=== PATIENT | female | born 1980 | race Caucasian/White ===

== ENCOUNTER → 2019-12-26 08:15 | Outpatient (CLI) | payer OTHER, SELFPAY ==
[2019-12-02 09:10] VITALS: BMI 29.7
[2019-12-26 10:28] LABS: Basophil# 0.04 X10^3/uL; Basophil% 0.7 % (0-1); Color, Urine Yellow (Yellow); Eosinophil# 0.25 X10^3/uL; Eosinophils% 4.1 % (0-5); Glucose, Dipstick Normal (Normal); Hematocrit 40.3 % (37-47); Hemoglobin 13.1 g/dL (12.0-15.0); Ketone-Dipstick Negative (Negative); Leukocyte Esterase-Dipstick 100 /ul (Negative); Lymphocyte % 36.4 % (19-41); Mean Corp Hgb Conc 32.5 g/dL (32-36); Mean Corpuscular Hgb 29.5 pg (27.0-32.0); Mean Corpuscular Volume 90.8 fL (81-99); Mean Platelet Vol. 10.2 fl (6.2-12.0); Monocyte# 0.54 X10^3/uL; Monocyte% 8.9 % (0-10); NRBC Flagged by Analyzer 0 % (0-5); Neutrophil # 2.99 X10^3/uL (2.7-7.7); Neutrophil % 49.6 % (47-70); Nitrite-Dipstick Negative (Negative); Occult Blood-Urine 25 /ul (Negative); Platelet Count 304 K/mm3 (150-450); Protein-Dipstick Negative (Negative); RBC Distribution Width CV 13.1 % (11.6-14.6); RBC Distribution Width SD 42.5 fl (35.1-43.9); Red Blood Count 4.44 M/mm3 (4.2-5.4); Specific Gravity, Urine 1.015 (1.002-1.030); Urine Bilirubin Dipstick Negative (Negative); Urine Clarity Clear (Clear); Urine Urobilinogen Normal (Normal)
[2019-12-26 10:52] LABS: ALB/GLOB Ratio 1.6 RATIO (0.9-2.4); AST(SGOT) 12 U/L (15-37); Alanine Aminotransfer ALT/SGPT 22 U/L (13-56); Albumin, Serum 4.4 g/dL (3.2-5.0); Alkaline Phosphatase 49 U/L (45-117); Anion Gap 5 (5-15); BUN 20 mg/dL (7-18); BUN/Creat Ratio 30.3 RATIO (10-20); Calcium,Total 8.6 mg/dL (8.5-10.1); Chloride 110 mmol/L (98-107); Cholesterol 175 mg/dL (200); Creatinine, Serum 0.66 mg/dL (0.55-1.02); EST Glomerular Filtration Rate 106 mL/min (>60); Est Glom Filt Rate - Afr Amer 128 mL/min (>60); Globulin 2.7 g/dL (2.2-4.2); Glucose 94 mg/dL (74-106); High Density Lipoprotein 45 mg/dL; Potassium 4.1 mmol/L (3.5-5.1); Protein, Total 7.1 g/dL (6.4-8.2); Sodium Level 141 mmol/L (136-145); Thyroid Stim Hormone (TSH) 3.03 uIU/mL (0.358-3.74); Triglycerides 87 mg/dL; Very Low Density Lipoprotein 17 mg/dL (5-40)
== END ==
PROVIDERS: PCP Family Medicine; Referring Provider Family Medicine; Visit Provider Family Medicine
DX: I10 Essential (primary) hypertension (principal)
CPT/HCPCS: 36415; 80053; 80061; 81002; 84443; 85025

== ENCOUNTER → 2020-01-27 13:39 | Outpatient (CLI) | payer OTHER, SELFPAY ==
[2019-12-02 09:10] VITALS: BMI 29.7
[2020-01-27 11:15] VITALS: BMI 29.7
[2020-01-27 13:42] LABS: Bacteria 0 SEEN /hpf (None Seen); Mucous, Urine 0 SEEN /hpf (<or=2+)
[2020-01-27 15:14] LABS: Color, Urine Yellow (Yellow); Glucose, Dipstick Normal (Normal); Ketone-Dipstick Negative (Negative); Leukocyte Esterase-Dipstick 25 /ul (Negative); Nitrite-Dipstick Negative (Negative); Occult Blood-Urine 150 /ul (Negative); Protein-Dipstick Negative (Negative); Urine Bilirubin Dipstick Negative (Negative); Urine Clarity Sl. Cloudy (Clear); Urine Urobilinogen Normal (Normal)
[2020-01-27 15:39] LABS: Red Blood Cells-Urine 10-25 SEEN /hpf (0-5); Squamous Epithelial Cells - UA 0-5 SEEN /hpf (5-10); White Blood Cells 0-5 SEEN /hpf (0-5)
[2020-01-27 16:08] LABS: Free T3 3.1 pg/mL (2.18-3.98); T4 Free Direct 1.01 ng/dL (0.76-1.46); Thyroid Stim Hormone (TSH) 2.12 uIU/mL (0.358-3.74)
[2020-01-30 16:08] LABS: Thyroid Peroxidase AB < 9 IU/mL (0-34)
[2020-01-30 21:30] LABS: Thyroglobulin Antibody < 1.0 IU/mL (0.0-0.9)
[2020-02-01 16:57] LABS: HPV APTIMA, High Risk Negative (Negative)
== END ==
PROVIDERS: PCP Family Medicine; Visit Provider Family Medicine
DX: Z12.4 Encounter for screening for malignant neoplasm of cervix (principal); E03.9 Hypothyroidism, unspecified; R31.9 Hematuria, unspecified
CPT/HCPCS: 36415; 81001; 84439; 84443; 84481; 86376; 86800; 87086; 87088; 87624; 88175; G0145

== ENCOUNTER → 2020-03-30 09:10 | Outpatient (CLI) | payer OTHER, SELFPAY ==
[2020-01-27 11:15] VITALS: BMI 29.7
[2020-03-30 10:07] LABS: Absolute Lymphocyte Count 1.83 X10^3/uL (0.83-4.51); Absolute Neutrophil Count 2.5 X10^3/uL (2.0-7.7); Basophil# 0.03 X10^3/uL; Basophil% 0.6 % (0-1); Eosinophil# 0.18 X10^3/uL; Eosinophils% 3.6 % (0-5); Hematocrit 40.8 % (37-47); Hemoglobin 13.1 g/dL (12.0-15.0); Lymphocyte # 1.83 X10^3/ul (4.0); Lymphocyte % 36.7 % (19-41); Mean Corp Hgb Conc 32.1 g/dL (32-36); Mean Corpuscular Hgb 28.5 pg (27.0-32.0); Mean Corpuscular Volume 88.9 fL (81-99); Mean Platelet Vol. 10.3 fl (6.2-12.0); Monocyte# 0.43 X10^3/uL; Monocyte% 8.6 % (0-10); NRBC Flagged by Analyzer 0 % (0-5); Neutrophil % 50.3 % (47-70); Platelet Count 321 K/mm3 (150-450); RBC Distribution Width SD 42.5 fl (35.1-43.9); Red Blood Count 4.59 M/mm3 (4.2-5.4)
[2020-03-30 10:25] LABS: Hemoglobin A1c 5.7 % (3.8-5.6)
[2020-03-30 10:41] LABS: ALB/GLOB Ratio 1.3 RATIO (0.9-2.4); AST(SGOT) 13 U/L (15-37); Alanine Aminotransfer ALT/SGPT 23 U/L (13-56); Alkaline Phosphatase 47 U/L (45-117); Anion Gap 4 (5-15); BUN 20 mg/dL (7-18); BUN/Creat Ratio 26.1 RATIO (10-20); CRP, High Sensitivity Cardiac 2.03 mg/L; Calcium,Total 8.7 mg/dL (8.5-10.1); Chloride 106 mmol/L (98-107); Cholesterol 182 mg/dL (200); Creatinine, Serum 0.77 mg/dL (0.55-1.02); EST Glomerular Filtration Rate 88 mL/min (>60); Est Glom Filt Rate - Afr Amer 107 mL/min (>60); Globulin 3.1 g/dL (2.2-4.2); Glucose 82 mg/dL (74-106); High Density Lipoprotein 48 mg/dL; Potassium 3.9 mmol/L (3.5-5.1); Protein, Total 7.1 g/dL (6.4-8.2); Sodium Level 139 mmol/L (136-145); Triglycerides 91 mg/dL; Very Low Density Lipoprotein 18 mg/dL (5-40)
== END ==
PROVIDERS: PCP Family Medicine; Referring Provider Nurse Practitioner Family; Visit Provider Nurse Practitioner Family
DX: R53.82 Chronic fatigue, unspecified (principal); M62.81 Muscle weakness (generalized)
CPT/HCPCS: 36415; 80053; 80061; 83036; 84443; 85025; 86141

== ENCOUNTER → 2020-05-10 18:30 | Outpatient (CLI) | payer OTHER, SELFPAY ==
[2020-01-27 11:15] VITALS: BMI 29.7
== END ==
PROVIDERS: PCP Family Medicine; Referring Provider Family Medicine; Visit Provider Family Medicine
DX: U07.1 COVID-19 (principal)
CPT/HCPCS: 87635; C9803; U0003

== ENCOUNTER → 2020-05-31 12:22 | Outpatient (CLI) | payer OTHER, SELFPAY ==
[2020-01-27 11:15] VITALS: BMI 29.7
--- NOTE | 2020-05-31 12:24 | BI_ITS ---
MAMMOGRAPHY - BILATERAL SCREENING REASON FOR EXAM: Female, 39 years old. Routine annual screening examination. PERTINENT HISTORY: Non-contributory. TECHNIQUE: Digital bilateral breast violette (3D mammographic acquisition) in the CC and MLO projections. 2-D mediolateral oblique (MLO) and craniocaudad (CC) views of both breasts were obtained. CAD: Full Field Digital Mammography with Computer Added Detection was performed. COMPARISON: None. Baseline examination. FINDINGS: Breast Composition: The breasts are heterogeneously dense, which may obscure small masses. There are no dominant masses or suspicious calcifications. There is a 1.1 cm well-defined nodule in the central deep portion of the right breast. Correlation with ultrasound is recommended. No other significant abnormalities are identified. BI/SCREEN MAMM (CAD) W/VIOLETTE BILAT IMPRESSION: 1.1 cm well-defined nodule in the central deep portion of the right breast. Correlation with ultrasound is recommended. ASSESSMENT CATEGORY: BIRADS Category 0: Incomplete. Need additional imaging evaluation. A letter regarding these results will be sent to the patient by the facility within 30 days. Approximately 10% of breast cancers are not detected by mammography. A normal mammogram should not delay biopsy of a clinically suspicious abnormality. [id number] Electronically Signed: Don Thornton, at 13:28 EST , Service support ,
== END ==
PROVIDERS: PCP Family Medicine; Referring Provider Obstetrics & Gynecology; Visit Provider Obstetrics & Gynecology
DX: Z12.31 Encounter for screening mammogram for malignant neoplasm of breast (principal)
CPT/HCPCS: 77063; 77067

== ENCOUNTER → 2020-06-05 08:31 | Outpatient (CLI) | payer OTHER, SELFPAY ==
[2020-01-27 11:15] VITALS: BMI 29.7
--- NOTE | 2020-06-05 08:34 | US_ITS ---
STUDY: ULTRASOUND BREAST - RIGHT REASON FOR EXAM: Female, 39 years old. ABN RT MAMM TECHNIQUE: Axial and longitudinal images of the RIGHT breast were performed with a high resolution ultrasound transducer. # OF IMAGES: 52 COMPARISON: None. FINDINGS: RIGHT Breast: There is a lesion #1 in the lower outer quadrant. The lesion measures 7 x 9 x 5 mm in size. Clock notation: 8 o''clock position. Distance from nipple: 8 cm. Posterior Enhancement: Yes. Posterior Shadowing: None. Margins: Sharp and jagged. Echogenicity: Anechoic. Compression effect on Shape: No change. US/Breast Limited Unilateral IMPRESSION: Probably benign cystic lesion in the right breast. ASSESSMENT CATEGORY: BIRADS Category 3: Probably Benign - Short-Interval Follow-up Suggested. A letter regarding these results will be sent to the patient by the facility within 30 days. Electronically Signed: Shaheen Mcdowell, at 14:56 EST Tel , Service support ,
== END ==
PROVIDERS: PCP Family Medicine; Referring Provider Obstetrics & Gynecology; Visit Provider Nurse Practitioner Women's Health
DX: N63.10 Unspecified lump in the right breast, unspecified quadrant (principal)
CPT/HCPCS: 76642

== ENCOUNTER → 2020-07-04 12:54 | Outpatient (CLI) | payer OTHER, SELFPAY ==
[2020-06-20 10:15] VITALS: BMI 29.8
--- NOTE | 2020-07-04 13:03 | ECHOCS_ITS ---
Reason For Study: Arrhythmia Procedure This was a 2D Doppler, Color Flow transthoracic echocardiogram. Contrast injection was performed. Exam performed in department. Left Ventricle Normal LV size. Left ventricular systolic function is normal. The estimated ejection fraction is 55 %. Normal diastology for age. Right Ventricle Normal RV size. Normal systolic function. Atria Normal left atrium. Normal right atrium. Mitral Valve Normal mitral valve. Tricuspid Valve Normal tricuspid valve. Mild (1+) tricuspid valve insufficiency. Pulmonary artery systolic pressure is 25 mmHg. Aortic Valve Normal aortic valve. Trisinus/trileaflet aortic valve. Pulmonic Valve Normal pulmonic valve. Mild (1+) pulmonic valve insufficiency. Great Vessels Normal aortic root. The pulmonary artery is normal size. Normal inferior vena cava. Pericardium/Pleural No pericardial effusion. Medication Diluted definity 3ml given slow IV push to enhance endocardial definition. MMode/2D Measurements & Calculations LVIDd: 4.6 cm IVSd: 0.82 cm Ao root diam: 2.8 cm LVIDs: 3.0 cm LVPWd: 0.86 cm RVDd: 3.8 cm FS: 34.9 % LAV(MOD-bp): 42.2 ml LVAd ap4: 28.3 cm2 SV(MOD-sp4): 42.6 ml LAV(MOD-bp) Indexed: 21.8 ml/m2 EDV(MOD-sp4): 79.6 ml LAV(MOD-sp2): 48.3 ml EDV(sp4-el): 82.4 ml LAV(MOD-sp4): 34.4 ml LVAs ap4: 17.4 cm2 ESV(MOD-sp4): 37.0 ml ESV(sp4-el): 37.5 ml EF(MOD-sp4): 53.5 % EF(sp4-el): 54.4 % SV(sp4-el): 44.8 ml LA A4 area: 14.5 cm2 LA dimension(2D): 3.5 cm RA A4 area: 14.5 cm2 Doppler Measurements & Calculations MV E max chase: 67.8 cm/sec Lat Peak E' Chase: 13.2 cm/sec Med Peak E' Chase: 10.5 cm/sec MV A max chase: 39.6 cm/sec E/E' lat: 5.1 E/E' med: 6.4 MV E/A: 1.7 Ao V2 max: 126.2 cm/sec LV V1 max: 123.3 cm/sec PA V2 max: 91.5 cm/sec Ao max P.4 mmHg LV V1 max P.1 mmHg Ao V2 mean: 89.7 cm/sec Ao mean P.5 mmHg Ao V2 VTI: 27.4 cm PI end-d chase: 76.1 cm/sec TR max chase: 230.6 cm/sec TR max P.3 mmHg Interpretation Summary Normal LV size. Left ventricular systolic function is normal. The estimated ejection fraction is 55 %. Mild (1+) tricuspid valve insufficiency. Ordering Physician: Abdiel Lofton Referring Physician: Magy Gerardo Performed By: Grazyna Nolan, RDCS, RVT
--- NOTE | 2020-07-04 13:49 | CT_ITS ---
STUDY: CARDIAC CALCIUM SCORING - CT CHEST REASON FOR EXAM: Female, 39 years old. FAMILY HISTORY CAD. OVER READ CALCIUM SCORING. RADIATION DOSAGE (If Supplied By Facility): CTDIvol = ( 12.19 ) mGy, DLP = ( 243.79 ) mGycm TECHNIQUE: Axial non-enhanced images were acquired through the heart for the sole purpose of measuring coronary artery calcium. Individualized dose optimization techniques were used for this CT. COMPARISON: None. FINDINGS: Please see the patient''s medical record for a personalized calcium score. The visualized lungs are clear. The heart and pericardium are within normal limits. Images through the upper abdomen demonstrate no significant abnormality. CT/Limited Chest CT w/CCTA IMPRESSION: Please see the patient''s medical record for a personalized calcium score. Please go to: [email or web address] , for a description of the calculator. Electronically Signed: Scooter Mena MD at 15:02 EST Tel , Service support ,
[2020-07-04 13:52] VITALS: BP 118/87; PULSE 62; RESP 16; O2SAT 100; BMI 29.8
--- NOTE | 2020-07-04 17:13 | CA.SCORE ---
Calcium Scoring Date of Study:: 07/04/20 Coronary Calcium Scoring: High-resolution Computed Tomographic imaging of the chest was performed on [07/04/2020], with particular attention paid to the coronary arteries. Images from the examination were analyzed for the presence and extent of coronary artery calcification , using coronary calcium quantification software. The patient tolerated the procedure well and there were no complications. The results of the coronary calcification analysis are provided below. - Findings Left Main (LM): 0 Left Anterior Descending (LAD): 0 Left Circumflex (LCX): 0 Right Coronary Artery (RCA): 0 Total Agatston Score: 0 Calcium Scoring Interpretation: 0 No identifiable atherosclerotic plaque. Very low cardiovascular disease risk. <5% chance of presence coronary artery disease A Negative Examination 1-10 Minimal Plaque burden. Significant coronary artery disease very unlikely. 11-100 Mild plaque burden. Likely mild or minimal coronary atherosclerosis. 101-400 Moderate plaque burden Moderate non-obstructive coronary artery disease highly likely. Over 400 Extensive plaque burden. High likelihood of at least one significant coronary stenosis (>50% diameter) Calcium Score: 0 Negative Examination - The above is suggestive of a negative examination with no evidence of coronary atherosclerotic plaquing. A full assessment of cardiac risk would include an assessment of all conventional risk factors and the scores and percentile rankings noted herein should be taken into consideration.
== END ==
PROVIDERS: PCP Family Medicine; Referring Provider Internal Medicine Cardiovascular Disease; Visit Provider Internal Medicine Cardiovascular Disease
DX: I49.8 Other specified cardiac arrhythmias (principal); Z82.49 Family history of ischemic heart disease and other diseases of the circulatory system
CPT/HCPCS: 75571; 76380; 93306; Q9957; A4216; C8929

== ENCOUNTER → 2020-11-16 09:27 | Outpatient (CLI) | payer OTHER, SELFPAY ==
[2020-01-27 11:15] VITALS: BMI 29.7
[2020-07-04 13:52] VITALS: BMI 29.8
--- NOTE | 2020-11-16 09:41 | BI_ITS ---
MAMMOGRAPHY - UNILATERAL DIAGNOSTIC: RIGHT BREAST REASON FOR EXAM: Female, 40 years old. Nodular density in the right breast. Six-month follow-up. PERTINENT HISTORY: Non-contributory. TECHNIQUE: Digital unilateral breast rebecca (3D mammographic acquisition) in the CC and MLO projections. 2-D mediolateral oblique (MLO) and craniocaudad (CC) views of both breasts were obtained. CAD: Full Field Digital Mammography with Computer Added Detection was performed. COMPARISON: Comparison is made with prior mammogram dated 05/31/2020. FINDINGS: Breast Composition: The breasts are heterogeneously dense, which may obscure small masses. Stable 1.2 cm x 0.9 cm well-defined nodule in the central deep slight lateral portion of the right breast. Correlation with ultrasound is recommended. No other significant abnormalities are identified. BI/DIAG MAMM W/CAD, UNILAT IMPRESSION: Stable unilateral diagnostic mammogram. Correlation with repeat sonogram of the right breast is recommended. ASSESSMENT CATEGORY: BIRADS Category 0: Incomplete. Need additional imaging evaluation. A letter regarding these results will be sent to the patient by the facility within 30 days. Approximately 10% of breast cancers are not detected by mammography. A normal mammogram should not delay biopsy of a clinically suspicious abnormality. Electronically Signed: Don Thornton MD at 12:36 EDT , Service support ,
--- NOTE | 2020-11-16 09:41 | US_ITS ---
STUDY: ULTRASOUND BREAST - RIGHT REASON FOR EXAM: Female, 40 years old. 6 month follow-up for right breast cyst. TECHNIQUE: Axial and longitudinal images of the RIGHT breast were performed with a high resolution ultrasound transducer. # OF IMAGES: 56 COMPARISON: Comparison is made with prior sonogram of the right breast dated 06/05/2020. FINDINGS: RIGHT Breast: There is a 6 mm x 7 mm x 5 mm hypoechoic/cystic nodule at the 10 o''clock position of the breast at 9 cm from nipple. The wall of the nodule is slightly lobulated. A biopsy is recommended. US/Breast Limited Unilateral IMPRESSION: 6 mm x 7 mm x 5 mm hypoechoic nodule with lobulated border as described. A biopsy is recommended. This is located at the 10 o''clock position of the breast at 9 cm from nipple. ASSESSMENT CATEGORY: BIRADS Category 4: Suspicious - Biopsy Should Be Considered. A letter regarding these results will be sent to the patient by the facility within 30 days. Electronically Signed: Don Thornton MD at 11:13 EDT , Service support ,
== END ==
PROVIDERS: PCP Family Medicine; Referring Provider Nurse Practitioner Women's Health; Visit Provider Nurse Practitioner Women's Health
DX: N60.01 Solitary cyst of right breast (principal)
CPT/HCPCS: 76642; 77061; 77065; G0279

== ENCOUNTER → 2020-11-28 12:33 | Outpatient (CLI) | payer OTHER, SELFPAY ==
[2020-11-22 11:56] VITALS: BMI 29.8
--- NOTE | 2020-11-28 | BRBX_PTH ---
PATIENT: VINH MIN LOC: [facility] U#:[id number] AGE/SX: 44/F ROOM: RE11/28/[address]: Dr. Maurisio Chappell MD : 1980 BED: DIS: SPEC #: [id number] RECD: 11/28/20 13:51 STATUS: OBDULIO ZE #: [id number] TAYLOR: 11/28/20 00:[address]: Maurisio Chappell DEPT: SURGICAL PATHOLOGY RECD BY: Umer Oconnor ENTERED: 11/28/20 13:51 SP TYPE: BREAST BX OTHR DR: Dr. Magy Gerardo MD Tissues: Right breast, NOS Procedures: Surgery Specimen Level IV HEADER OPERATION: Ultrasound-guided right breast biopsy PRE-OP DIAGNOSIS: Right breast mass TISSUE SUBMITTED: Right breast 10 o?clock positon, primarily cystic ISCHEMIC TIME: 1 minute FIXATION TIME: 6.5 hours MICROSCOPIC DIAGNOSIS Right breast at 10 o?clock, ultrasound-guided core biopsy: Fibrocystic change. Focal intraductal hyperplasia without atypia. No evidence of malignancy. AM:joel 11/29/2020 MICROSCOPIC DESCRIPTION Slides are reviewed. GROSS DESCRIPTION Received in fixative is one container labeled with the patient name and designated right breast. The specimen consists of multiple elongated fragments of song-yellow fibroadipose tissue that in aggregate measure 2.5 x 0.5 x 0.1 cm. The entire specimen is submitted in one cassette. / SJ:joel 11/28/20 TC:5 CPT: 16992
--- NOTE | 2020-11-28 12:36 | US_ITS ---
STUDY: ULTRASOUND BREAST - RIGHT REASON FOR EXAM: Female, 40 years old. TECHNIQUE: Axial and longitudinal images of the RIGHT breast were performed with a high resolution ultrasound transducer. # OF IMAGES: 21 COMPARISON: None. FINDINGS: RIGHT Breast: There is biopsy needle directed to the upper outer quadrant of the right breast towards the cystic area. This procedure was done by the surgeon. Electronically Signed: Leo Thomas, at 8:22 EDT Tel , Service support , US/US Breast Biopsy 1st Lesion
--- NOTE | 2020-11-28 12:58 | OP.PCM_ITS ---
Problems Associated Problem List Diagnoses (1) Abnormal ultrasound of breast: Report of Operation Date of Procedure: 11/28/20 Pre-Operative Diagnosis: Abnormal ultrasound of right breast Post-Operative Diagnosis: Same Surgery/Procedure Performed:: Ultrasound-guided right breast biopsy Specimen's removed: Right breast biopsy Description of Procedure: The patient's right breast was prepped and draped in usual sterile fashion. The lesion noted on ultrasound was localized in the 10:00 region of the right breast. After obtaining signed consent an area of sk in was injected with local anesthetic and cooper with a scalpel. A 13-gauge core mammotome needle was placed into the lesion under ultrasound guidance and several biopsies were obtained. The cyst was completely aspirated and the surrounding area was biopsied adequately. A clip was then placed into this area and the needle was removed. Steri-Strip and bandage were placed over the incision and ice pack was applied. Patient tolerated the procedure well.
== END ==
PROVIDERS: PCP Family Medicine; Referring Provider Surgery; Visit Provider Surgery
DX: R92.8 Other abnormal and inconclusive findings on diagnostic imaging of breast (principal); N62 Hypertrophy of breast
CPT/HCPCS: 19083; 88305

== ENCOUNTER → 2021-04-19 13:17 | Outpatient (CLI) | payer OTHER, SELFPAY ==
[2021-04-19 15:03] LABS: Erythrocyte Sedimentation Rate 3 mm/hr (0-30)
[2021-04-19 15:14] LABS: Rheumatoid Factor < 10.0 IU/mL (<15)
[2021-04-19 15:20] LABS: Vitamin D,25 Hydroxy 27.8 ng/mL
[2021-04-23 11:22] LABS: CCP IgG Antibodies 2 units (0-19)
[2021-04-23 12:26] LABS: ANTINUCLEAR ANTIBODIES DIRECT Negative (Negative)
== END ==
PROVIDERS: PCP Internal Medicine; Referring Provider Internal Medicine; Visit Provider Internal Medicine
DX: M25.50 Pain in unspecified joint (principal); R53.83 Other fatigue
CPT/HCPCS: 36415; 82306; 82533; 85652; 86038; 86140; 86200; 86225; 86235; 86431

== ENCOUNTER → 2021-05-13 10:50 | Outpatient (CLI) | payer OTHER, SELFPAY ==
--- NOTE | 2021-05-13 10:53 | US_ITS ---
STUDY: ULTRASOUND BREAST - RIGHT REASON FOR EXAM: Female, 40 years old. Six-month follow-up of right ultrasound-guided breast biopsy. TECHNIQUE: Axial and longitudinal images of the RIGHT breast were performed with a high resolution ultrasound transducer. # OF IMAGES: 27 COMPARISON: Comparison is made with prior examination dated 11/16/2020. FINDINGS: RIGHT Breast: The upper outer aspect of the right breast was examined by ultrasound. There is evidence of fibroglandular tissue. No solid or cystic masses seen at this time. US/Breast Limited Unilateral IMPRESSION: No sonographic abnormality is seen at this time ASSESSMENT CATEGORY: BIRADS Category 2: Benign. A letter regarding these results will be sent to the patient by the facility within 30 days. Electronically Signed: Don Thornton MD at 11:18 EST , Service support ,
== END ==
PROVIDERS: PCP Internal Medicine; Referring Provider Surgery; Visit Provider Surgery
DX: R92.8 Other abnormal and inconclusive findings on diagnostic imaging of breast (principal)
CPT/HCPCS: 76642

== ENCOUNTER → 2021-05-14 12:26 | Outpatient (CLI) | payer OTHER, SELFPAY | PROVIDERS: PCP Internal Medicine; Visit Provider Internal Medicine | DX: G47.30 Sleep apnea, unspecified (principal); E66.9 Obesity, unspecified; R53.83 Other fatigue | CPT/HCPCS: 95806 ==

== ENCOUNTER 2021-06-18 20:11 | Outpatient (CLI) | payer OTHER, SELFPAY | END 2021-06-18 23:59 | disposition short-term general hospital (02) | PROVIDERS: PCP Internal Medicine; Referring Provider Nurse Practitioner Acute Care; Visit Provider Nurse Practitioner Acute Care | DX: G47.33 Obstructive sleep apnea (adult) (pediatric) (principal) | CPT/HCPCS: 95810 ==

== ENCOUNTER → 2022-01-02 | Outpatient (CLI) | payer OTHER, SELFPAY ==
[2022-01-02 16:36] LABS: Anion Gap 6 (5-15); BUN 17 mg/dL (7-18); BUN/Creat Ratio 22.1 RATIO (10-20); Calcium,Total 9.4 mg/dL (8.5-10.1); Chloride 106 mmol/L (98-107); Creatinine, Serum 0.77 mg/dL (0.55-1.02); EST Glomerular Filtration Rate 87 mL/min (>60); Est Glom Filt Rate - Afr Amer 106 mL/min (>60); Glucose 91 mg/dL (74-106); Potassium 3.9 mmol/L (3.5-5.1); Sodium Level 138 mmol/L (136-145); Thyroid Stim Hormone (TSH) 2.68 uIU/mL (0.358-3.74)
== END | disposition home or self-care (01) ==
LOC: LAB 15:49
PROVIDERS: PCP Internal Medicine; Visit Provider Internal Medicine Cardiovascular Disease
DX: I10 Essential (primary) hypertension (principal)
CPT/HCPCS: 36415; 80048; 84443

== ENCOUNTER → 2022-05-28 | Outpatient (CLI) | payer OTHER, SELFPAY ==
--- NOTE | 2022-05-28 15:53 | BI_ITS ---
MAMMOGRAPHY - BILATERAL SCREENING REASON FOR EXAM: Female, 41 years old. Routine annual screening examination. PERTINENT HISTORY: Non-contributory. Left breast scar from melanoma resection. TECHNIQUE: Digital bilateral breast violette (3D mammographic acquisition) in the CC and MLO projections. 2-D mediolateral oblique (MLO) and craniocaudad (CC) views of both breasts were obtained. CAD: Full Field Digital Mammography with Computer Added Detection was performed. COMPARISON: Comparison is made with prior study dated 12/16/2020 and 05/31/2020. FINDINGS: Breast Composition: The breasts are heterogeneously dense, which may obscure small masses. There are no dominant masses or suspicious calcifications. A tissue clip marker is seen in the deep upper axillary region of the right breast. No other significant abnormalities are identified. There has been no significant change since the prior study. BI/SCRN MAMM (CAD)W/VIOLETTE BILAT IMPRESSION: Stable bilateral screening mammogram. Yearly follow-up mammogram recommended. (A) ASSESSMENT CATEGORY: BIRADS Category 2: Benign. A letter regarding these results will be sent to the patient by the facility within 30 days. Approximately 10% of breast cancers are not detected by mammography. A normal mammogram should not delay biopsy of a clinically suspicious abnormality. [id number] Electronically Signed: Don Thornton MD at 8:31 EST ,
== END | disposition home or self-care (01) ==
LOC: OPBI 15:52
PROVIDERS: PCP Internal Medicine; Referring Provider Obstetrics & Gynecology; Visit Provider Obstetrics & Gynecology
DX: Z12.31 Encounter for screening mammogram for malignant neoplasm of breast (principal); Z85.820 Personal history of malignant melanoma of skin
CPT/HCPCS: 77063; 77067

== ENCOUNTER → 2023-05-29 | Outpatient (CLI) | payer OTHER, SELFPAY ==
--- NOTE | 2023-05-29 07:47 | BI_ITS ---
MAMMOGRAPHY - BILATERAL SCREENING 3-D TOMOSYNTHESIS REASON FOR EXAM: Female, 42 years old. Screening for malignant neoplasm of the breast PERTINENT HISTORY: No significant family history. TECHNIQUE: 2-D mammograms and 3-D Tomosynthesis of the breast (s) were performed. CAD was performed. COMPARISON: 05/28/2022, 05/31/2020 FINDINGS: The breast composition is composed of scattered fibroglandular density. Scattered benign calcifications are seen. No dense spiculated masses or suspicious microcalcifications are identified. No architectural distortion is identified. There is no skin thickening or retraction. There has been no significant change since the prior study. BI/SCRN MAMM (CAD)W/VIOLETTE BILAT IMPRESSION: No mammographic signs of malignancy. Routine yearly mammograms recommended. ASSESSMENT CATEGORY: BIRADS Category 2: Benign. A letter regarding these results will be sent to the patient by the facility within 30 days. FOLLOW UP RECOMMENDATION: Yearly follow up mammogram recommended. (A) Approximately 10% of breast cancers are not detected by mammography. A normal mammogram should not delay biopsy of a clinically suspicious abnormality. Electronically Signed: Amaury Pedro MD at 11:58 EST ,
== END | disposition home or self-care (01) ==
LOC: OPBI 07:54
PROVIDERS: PCP Internal Medicine; Referring Provider Obstetrics & Gynecology; Visit Provider Obstetrics & Gynecology
DX: Z12.31 Encounter for screening mammogram for malignant neoplasm of breast (principal)
CPT/HCPCS: 77063; 77067

== ENCOUNTER 2024-04-29 23:22 | Emergency (ER) | payer OTHER, SELFPAY ==
[2024-04-29 23:23] VITALS: BP 133/78; PULSE 97; RESP 18; TEMP 36.7; O2SAT 96; BMI 32.3
[2024-04-29 23:26] VITALS: BP 133/78; PULSE 98; RESP 18; TEMP 36.7; O2SAT 96
[2024-04-29 23:27] VITALS: O2SAT 95
--- NOTE | 2024-04-29 23:36 | EX.ED.DYSGE1 ---
HPI History of Present Illness Chief Complaint: Cold Sx Informant: patient Narrative Narrative: 43-year-old female presenting to the emergency room with cough and fever. Patient states on Thursday she began to have body aches and developed fever. She has also developed cough and has not been experiencing some shortness of breath and chest discomfort. She denies any vomiting or diarrhea. She notes a hoarse voice/sore throat. Fever has been intermittent. [facility] Medical History Abnormal ultrasound of breast Incomplete right bundle branch block Family history of coronary artery disease COVID-19 virus detected (05/10/20) Breast cyst Frequent headaches Melanoma Home Medications ?Medication ?Instructions ?Recorded ?Last Taken ?Type multivitamin 1 tab PO DAILY 04/15/21 Unknown History Allergy/AdvReac Type Severity Reaction Status Date / Time venom-honey bee (bee venom Allergy Unknown Verified 04/29/24 23:23 (honey bee)) Family History Mother Lupus Hypertension Skin cancer Afib Sleep apnea Sister Hypertension Skin cancer High cholesterol Thyroid disorder Grandfather Parkinson's disease Grandmother Hypertension Grandfather Heart disease Hypertension Brother Myocardial infarction, Onset Age: 42 Sleep apnea Other Atrial fibrillation and flutter CAD (coronary artery disease) Diabetes Surgical History H/O LEEP Melanoma in situ of breast Melanoma of multiple sites of lower extremity History of tonsillectomy Social History Smoking Status: Never smoker second hand exposure: No alcohol intake: never substance use type: does not use what type of physical activity do you participate in: walking frequency: 3-4 times per week seatbelt use: always do you feel safe at home: Yes additional social history: - Curt THIERNO [place] ED Constitutional Constitutional ED: Reports chills and fever(s); Denies weight loss Eyes Eyes: Denies change in vision or diplopia ENT ENT ED: Reports rhinorrhea and sore throat; Denies ear pain Cardiovascular Cardiovascular: Reports chest pain; Denies orthopnea, palpitations or racing heartbeat Respiratory/Chest Respiratory/Chest: Reports cough and dyspnea; Denies orthopnea Gastrointestinal Gastrointestinal: Denies abdominal pain, diarrhea, nausea or vomiting Genitourinary Genitourinary ED: Denies dysuria, hematuria or urinary frequency Musculoskeletal Musculoskeletal: Reports myalgias; Denies arthralgias Integumentary Denies abscess or rash Neurologic Neurologic: Denies headache(s) or weakness Psychiatric Psychiatric: Denies anxiety, depression, suicidal ideation or suicidal thoughts Endocrine Endocrinology: Denies polydipsia, polyphagia or polyuria Allergic/Immunologic Allergic/Immunologic ED: Denies mouth swelling, tongue swelling or urticaria EXAM Physical Exam Narrative Exam Narrative: Well-appearing female laying back at approximately 45 degrees. Handling her secretions normally no acute distress Const Vital Signs: 04/29/24 23:23 04/29/24 23:26 04/29/24 23:27 Temperature 98.1 F 98.1 F Temperature Source Oral Oral Pulse Rate 97 98 Respiratory Rate 18 18 Respiratory Effort Normal Non-Labored Respiratory Depth Respiratory Pattern Normal Blood Pressure 133/78 H 133/78 H Blood Pressure Mean 96 96 Pulse Ox 96 96 Oxygen Delivery Method Room Air Room Air 04/29/24 23:27 04/30/24 00:26 Temperature 98.5 F Temperature Source Oral Pulse Rate 98 Respiratory Rate 18 Respiratory Effort Normal Non-Labored Respiratory Depth Normal Respiratory Pattern Normal Blood Pressure 126/72 H Blood Pressure Mean 90 Pulse Ox 96 Oxygen Delivery Method Room Air Room Air Positive well nourished and well developed General Appearance ED: well developed and NAD HEENT Reports normocephalic, head/scalp atraumatic and moist mucous membranes HEENT Narrative: Patient whispering. There are no cracks in the voice. There is no oropharyngeal erythema swelling or petechiae. No evidence of abscess. Nasal congestion. Eyes PERRL and EOMs intact bilaterally Neck no lymphadenopathy, supple and no JVD Resp normal respiratory effort and clear to auscultation bilaterally Cardio regular rate, regular rhythm and no murmurs GI normal to inspection, nondistended, normoactive bowel sounds and non-tender Palpation: soft Back/Spine no CVA tenderness and normal ROM Extremity normal to inspection General Extremety ED: Negative for edema General Extremity: Negative for edema Neuro oriented x3 and CN's II-XII intact bilaterally Sensorium / Orientation: alert Motor Exam: strength 5/5 throughout Psych mental status grossly normal Mood & Affect: Negative for depressed or tearful Skin no rashes or lesions noted and no wounds MDM MDM MDM Narrative Medical decision making narrative: Differential diagnosis includes but not limited to viral syndrome bronchitis URI pneumonia pleural effusion chest wall pain muscular chest strain My independent interpretation of the chest x-ray is no definitive infiltrate or effusion. No pneumothorax is seen. Normal mediastinal silhouette. COVID influenza and RSV swab was sent. These were negative. Patient received Tylenol for headache. Clinically the patient appears to have more of a viral syndrome. Would recommend continued supportive care return if worsening or concerns History & Record Review Discussion w/independent historian: Patient and Family Radiography Diagnostic Testing: Clinical Impression(s) from Imaging Studies Chest X-Ray 04/29/24 23:40 IMPRESSION: No radiographic evidence of acute cardiopulmonary disease. Electronically Signed: Eugene Velásquez MD at 23:56 EST , Discharge Plan Triage Chief Complaint: Cold Sx ED Provider: Slava Rojas Dx/Rx/DC Orders Clinical Impression: Acute viral syndrome, Laryngitis Instructions: ED Laryngitis, ED Viral Syndrome (Adult) Prescriptions: No Action multivitamin Tablet 1 tab PO DAILY Primary Care Provider: Cesar Lucas Referrals: Cesar Lucas DO [Primary Care Provider] - As Needed Print Language: Wolof Disposition Disposition: Home, Self Care
--- NOTE | 2024-04-29 23:40 | RAD_ITS ---
EXAM: XR CHEST, 2 VIEWS CLINICAL INDICATION: cough TECHNIQUE: Frontal and lateral views of the chest. COMPARISON: No relevant prior studies available. FINDINGS: LUNGS AND PLEURAL SPACES: Unremarkable. No consolidation or edema. No pneumothorax. No effusion. HEART: Unremarkable. Cardiac silhouette not enlarged. MEDIASTINUM: Central airways and mediastinal contour are unremarkable. BONES/JOINTS: Unremarkable. No acute fracture. SOFT TISSUES: Unremarkable. RAD/Chest PA and Lateral IMPRESSION: No radiographic evidence of acute cardiopulmonary disease. Electronically Signed: Eugene Velásquez MD at 23:56 EST ,
[2024-04-30] MEDS: Acetaminophen 500 MG Tablet 1000 MG PO (00:21)
[2024-04-30 00:26] VITALS: BP 126/72; PULSE 98; RESP 18; TEMP 36.9; O2SAT 96
[2024-04-30 00:33] VITALS: BP 126/72; PULSE 98; RESP 18; TEMP 36.9; O2SAT 95
== END 2024-04-30 00:36 | disposition home or self-care (01) ==
PROVIDERS: Emergency Provider Emergency Medicine; PCP Family Medicine; Visit Provider Emergency Medicine
DX: J04.0 Acute laryngitis (principal); B34.9 Viral infection, unspecified; Z11.52 Encounter for screening for COVID-19
CPT/HCPCS: 71046; 87631; 99283

== ENCOUNTER → 2024-08-02 | Outpatient (CLI) | payer OTHER, SELFPAY ==
[2024-08-02 16:04] LABS: Absolute Lymphocyte Count 2.11 X10^3/uL (0.83-4.51); Absolute Neutrophil Count 5.8 X10^3/uL (2.0-7.7); Basophil# 0.05 X10^3/uL; Basophil% 0.6 % (0-1); Eosinophil# 0.23 X10^3/uL; Eosinophils% 2.7 % (0-5); Hematocrit 43.4 % (37-47); Hemoglobin 13.7 g/dL (12.0-15.0); Lymphocyte # 2.11 X10^3/ul (0.83-4.51); Lymphocyte % 24.3 % (19-41); Mean Corp Hgb Conc 31.6 g/dL (32-36); Mean Corpuscular Hgb 28.4 pg (27.0-32.0); Mean Corpuscular Volume 89.9 fL (81-99); Mean Platelet Vol. 9.9 fl (6.2-12.0); Monocyte# 0.45 X10^3/uL; Monocyte% 5.2 % (0-10); NRBC Flagged by Analyzer 0 % (0-5); Neutrophil # 5.79 X10^3/uL (2.7-7.7); Neutrophil % 66.7 % (47-70); Platelet Count 385 K/mm3 (150-450); RBC Distribution Width CV 14.1 % (11.6-14.6); RBC Distribution Width SD 45.5 fl (35.1-43.9); Red Blood Count 4.83 M/mm3 (4.2-5.4); White Blood Count 8.7 K/mm3 (4.4-11.0)
[2024-08-02 16:17] LABS: Erythrocyte Sedimentation Rate 3 mm/hr (0-30)
[2024-08-03 05:09] LABS: Albumin, Serum 4.7 g/dL (3.5-5.0); Alkaline Phosphatase 46 U/L (35-104); BUN 13 mg/dL (4-19); Creatinine, Serum 0.7 mg/dL (0.6-1.0); EST Glomerular Filtration Rate 106 (>60); Ferritin 45 ng/mL (22-378); Globulin 2.6 g/dL (2.2-4.2); Vitamin B12 497 pg/mL (180-914); Vitamin D,25 Hydroxy 31.3 ng/mL (30-100)
[2024-08-03 05:31] LABS: CRP < 3.00 mg/L (0.0-3.0); Rheumatoid Factor 18.5 IU/mL (<15)
[2024-08-03 07:22] LABS: Iron 72 ug/dL (50-170)
[2024-08-03 10:40] LABS: ALB/GLOB Ratio 1.8 RATIO (0.9-2.4); AST(SGOT) 22 U/L (<=31); Alanine Aminotransfer ALT/SGPT 17 U/L (<=34); BUN/Creat Ratio 18.1 RATIO (10-20); Glucose 68 mg/dL (70-99); Protein, Total 7.4 g/dL (5.9-8.4); Total Bilirubin 0.22 mg/dL (0.00-1.30)
[2024-08-03 14:00] LABS: Cholesterol 241 mg/dL (<=200); High Density Lipoprotein 57 mg/dL; Low Density Lipoprotein Calc. 160 mg/dL; Triglycerides 125 mg/dL; Very Low Density Lipoprotein 25 mg/dL (5-40); cholesterol:hdl ratio screen 4.27
[2024-08-03 14:45] LABS: Calcium,Total 9.5 mg/dL (7.6-11.0)
[2024-08-03 14:46] LABS: Anion Gap 20 (5-15); Chloride 103 mmol/L (98-107); Potassium 4.3 mmol/L (3.5-5.1); Sodium Level 140 mmol/L (136-145)
[2024-08-03 16:21] LABS: Hemoglobin A1c 5.9 % (<=5.6)
[2024-08-04 13:08] LABS: CCP IgG Antibodies 2 units (0-19)
[2024-08-04 14:08] LABS: ANTINUCLEAR ANTIBODIES DIRECT Negative (Negative)
== END | disposition home or self-care (01) ==
LOC: BFHLAB 10:53
PROVIDERS: PCP Family Medicine; Visit Provider Nurse Practitioner Family
DX: Z00.01 Encounter for general adult medical examination with abnormal findings (principal); R73.01 Impaired fasting glucose; R53.83 Other fatigue
CPT/HCPCS: 36415; 80053; 80061; 82306; 82607; 82728; 83036; 83540; 84439; 84443; 85025; 85652; 86038; 86140; 86200; 86225; 86235; 86431